=== PATIENT | female | born 1985 | race African-American/Black ===

== ENCOUNTER 2022-08-29 21:24 | Emergency (ER) | payer SELFPAY ==
[~2022-08-29] VITALS: Ht 162.6 cm; Wt 64.0 kg
[2022-08-29 21:39] VITALS: BP 125/87
[2022-08-29 22:50] LABS: CHLORIDE 111 mEq/L (98-107)
[2022-08-29 22:53] LABS: PROTHROMBIN TIME 10.9 sec (9.6-11.0)
[2022-08-29 23:45] LABS: BASOPHILS % 0.8 % (0.0-2.0); EOSINOPHILS % 13.3 % (0.0-5.0); HEMATOCRIT. 37.2 % (36.0-48.0); HEMOGLOBIN. 12.6 g/dL (12.0-16.0); LYMPHOCYTES % 28.8 % (20.0-50.0); MEAN CORPUSCULAR HEMOGLOBIN 28.7 pg (28.0-32.0); MEAN CORPUSCULAR VOLUME 85.1 fL (81.0-99.0); MEAN PLATELET VOLUME 6.2 fl (7.4-10.4); MONOCYTES % 4.1 % (2.0-8.0); PLATELET 567 x1000/uL (130-400); RED BLOOD CELL COUNT 4.38 mill/uL (4.2-5.4); RED CELL DISTRIBUTION WIDTH 18.3 % (11.6-14.6)
[2022-08-30] MEDS ORDERED: PIPERACILLIN/TAZ 3.375G PREMIX 50 ML IV ONE (00:15)
[2022-08-30] MEDS ORDERED: VANCOMYCIN 1G PREMIX 200 ML IV ONE (00:15)
[2022-08-30] MEDS ORDERED: SODIUM CHLORIDE 0.9% 1000ML BAG (SEPSIS BOLUS) IV ONE (00:15)
[2022-08-30] MEDS ORDERED: ACETAMINOPHEN 325MG TABLET PO ONE (00:15)
== END 2022-08-30 01:21 | disposition left against medical advice (07) ==
LOC: ER 21:24 → CANBEDREQ 08-30 19:40
DX: A41.9 Sepsis, unspecified organism (principal); L50.9 Urticaria, unspecified
CPT/HCPCS: 36415; 71045; 80053; 83605; 84145; 85025; 85610; 87040; 93005; 99285; J7030